=== PATIENT | male | born 1995 | race African-American/Black ===

== ENCOUNTER 2021-03-13 07:43 | Emergency (ER) | payer OTHER ==
[~2021-03-13] VITALS: Ht 188 cm; Wt 90.7 kg
--- NOTE | ~2021-03-13 | EMS ---
[facility] [address] [place] [address] EMS Patient Care Report Name: JABARI WARD Room #: REG RACQUEL Dolan#: [id number] Admission: 03/13/21 Attend Phys: Discharge: Date of : [birth year] Report #: [id number] THIS REPORT FOR: //name// Report Transmitted: 03/13/2021 07:40 EMS Care Summary [place], [place]/[facility] Incident [id number] @ 03/13/2021 06:42 Incident Location [address] [place] [address] Patient JABARI WARD Male, 25 Years 1995 Patient Address [address] [place] [address] Patient History Seizures, Patient Allergies No known allergies, Patient Medications Keppra, Chief Complaint sz Disposition Transported No Lights/[place] Reason Convulsions/Seizure Transported To [facility] Narrative pt found in bed post ictal. friend states she awoke when pt started to have a sz. she reports sz lasting approx 3 min. pt has a sz hx, unk if he is [facility] [address] [place] [address] EMS Patient Care Report Name: JABARI WARD Room #: REG RACQUEL Dolan#: [id number] Admission: 03/13/21 Attend Phys: Discharge: Date of : [birth year] Report #: [id number] compliant w/ meds. pt opens eyes to verbal, he is confused, c/o headache. pt out to cot, tx as listed in flow chart. pt has a large amount of blood tinged emesis prior to departure. he becomes more alert during transport but is still confused. transport to closest facility. report to staff on arrival rm 9. Initial Vitals @07:18P: 60,R: 18,BP: 100/60,Pain: 0/10,GCS: 13,Glucose: 143,SpO2: 97,Revised Trauma: 12, @07:39P: 70,R: 18,GCS: 14,SpO2: 96, Assessments @07:05MENTAL:Confused,SKIN:No Abnormalities,HEENT:Head/Face: Other,LUNG SOUNDS:General: Vomiting,ABDOMEN:General: Vomiting,PELVIS//GI:EXTREMITIES:PULSE:Radial: 2+ Normal,NEURO:Other,Seizures,@07:39MENTAL:Person Oriented,Confused,SKIN:No Abnormalities,HEENT:Head/Face: Other,LUNG SOUNDS:General: Vomiting,ABDOMEN:General: Vomiting,PELVIS//GI:EXTREMITIES:PULSE:NEURO:No Abnormalities, Impression Seizures Procedures @07:05 ALS Assessment Response: Unchanged @07:15 Stretcher Response: Unchanged @07:18 3-Lead ECG Response: Unchanged @07:20 IV Therapy - Saline Lock 10cc (20 ga) Site: Hand-Left Response: UnchangedSucceeded Timeline 06:41,Call Received 06:41,Dispatch Notified 06:42,Dispatched 06:43,En Route 06:59,On Scene 07:05,At Patient 07:05,ALS Assessment,Response: Unchanged 07:15,Stretcher,Response: Unchanged 07:18,BP: 100/60 M,PULSE: 60,RR: 18 R,SPO2: 97 Ox,ETCO2: ,B,PAIN: 0,GCS: 13, 07:18,3-Lead ECG,Response: Unchanged 07:20,IV Therapy - Saline Lock 10cc 20 ga Site: Hand-Left,Response: UnchangedSucceeded, 07:30,Depart Scene 07:39,At Destination [facility] [address] [place] [address] EMS Patient Care Report Name: JABARI WARD Room #: REG [facility]..#: [id number] Admission: 03/13/21 Attend Phys: Discharge: Date of : [birth year] Report #: [id number] 07:39,BP: / M,PULSE: 70,RR: 18 R,SPO2: 96 Ox,ETCO2: ,BG: ,PAIN: ,GCS: 14, 07:56,Call Closed Disclaimer v1.1 Copyright 2021 [employer] This EMS Care Summary contains data elements from the applicable legal record (which may be displayed differently). It is designed to provide pertinent information for the following purposes: continuity of care, clinical quality, and state data reporting. The complete legal record is available to ED staff and administrators of the receiving hospital in [employer] Patient Tracker. All data is provided "as is."
--- NOTE | ~2021-03-13 | EMS ---
[facility] [address] [place] [address] EMS Patient Care Report Name: JABARI WARD Room #: REG RACQUEL Dolan#: [id number] Admission: 03/13/21 Attend Phys: Discharge: Date of : [birth year] Report #: [id number] THIS REPORT FOR: //name// Report Transmitted: 03/13/2021 08:42 EMS Care Summary [place], [place]/[facility] Incident [id number] @ 03/13/2021 06:42 Incident Location [address] [place] [address] Patient JABARI WARD Male, 25 Years 1995 Patient Address [address] [place] [address] Patient History Seizures, Patient Allergies No known allergies, Patient Medications Keppra, Chief Complaint sz Disposition Transported No Lights/[place] Reason Convulsions/Seizure Transported To [facility] Narrative pt found in bed post ictal. friend states she awoke when pt started to have a sz. she reports sz lasting approx 3 min. pt has a sz hx, unk if he is [facility] [address] [place] [address] EMS Patient Care Report Name: JABARI WARD Room #: REG RACQUEL Dolan#: [id number] Admission: 03/13/21 Attend Phys: Discharge: Date of : [birth year] Report #: [id number] compliant w/ meds. pt opens eyes to verbal, he is confused, c/o headache. pt out to cot, tx as listed in flow chart. pt has a large amount of blood tinged emesis prior to departure. he becomes more alert during transport but is still confused. transport to closest facility. report to staff on arrival rm 9. Initial Vitals @07:18P: 60,R: 18,BP: 100/60,Pain: 0/10,GCS: 13,Glucose: 143,SpO2: 97,Revised Trauma: 12, @07:39P: 70,R: 18,GCS: 14,SpO2: 96, Assessments @07:05MENTAL:Confused,SKIN:No Abnormalities,HEENT:Head/Face: Other,LUNG SOUNDS:General: Vomiting,ABDOMEN:General: Vomiting,PELVIS//GI:EXTREMITIES:PULSE:Radial: 2+ Normal,NEURO:Other,Seizures,@07:39MENTAL:Person Oriented,Confused,SKIN:No Abnormalities,HEENT:Head/Face: Other,LUNG SOUNDS:General: Vomiting,ABDOMEN:General: Vomiting,PELVIS//GI:EXTREMITIES:PULSE:NEURO:No Abnormalities, Impression Seizures Procedures @07:05 ALS Assessment Response: Unchanged @07:15 Stretcher Response: Unchanged @07:18 3-Lead ECG Response: Unchanged @07:20 IV Therapy - Saline Lock 10cc (20 ga) Site: Hand-Left Response: UnchangedSucceeded Timeline 06:41,Call Received 06:41,Dispatch Notified 06:42,Dispatched 06:43,En Route 06:59,On Scene 07:05,At Patient 07:05,ALS Assessment,Response: Unchanged 07:15,Stretcher,Response: Unchanged 07:18,BP: 100/60 M,PULSE: 60,RR: 18 R,SPO2: 97 Ox,ETCO2: ,B,PAIN: 0,GCS: 13, 07:18,3-Lead ECG,Response: Unchanged 07:20,IV Therapy - Saline Lock 10cc 20 ga Site: Hand-Left,Response: UnchangedSucceeded, 07:30,Depart Scene 07:39,At Destination [facility] [address] [place] [address] EMS Patient Care Report Name: JABARI WARD Room #: REG [facility]..#: [id number] Admission: 03/13/21 Attend Phys: Discharge: Date of : [birth year] Report #: [id number] 07:39,BP: / M,PULSE: 70,RR: 18 R,SPO2: 96 Ox,ETCO2: ,BG: ,PAIN: ,GCS: 14, 07:56,Call Closed Disclaimer v1.1 Copyright 2021 [employer] This EMS Care Summary contains data elements from the applicable legal record (which may be displayed differently). It is designed to provide pertinent information for the following purposes: continuity of care, clinical quality, and state data reporting. The complete legal record is available to ED staff and administrators of the receiving hospital in [employer]'s Patient Tracker. All data is provided "as is."
[2021-03-13] MEDS ORDERED: DOXYCYCLINE 10100 MG PO (11:54)
[2021-03-13 12:09] VITALS: BP 122/72
== END 2021-03-13 12:04 | disposition home or self-care (01) ==
LOC: ER 07:43
DX: R56.9 Unspecified convulsions (principal); R51.9 Headache, unspecified; R36.9 Urethral discharge, unspecified

== ENCOUNTER 2021-03-23 08:20 | Emergency (ER) | payer OTHER ==
[~2021-03-23] VITALS: Ht 185.4 cm; Wt 86.2 kg
[~2021-03-23 08:20] MED LIST: DOXYCYCLINE 10100 MG PO
[2021-03-23 08:32] VITALS: BP 116/68
[2021-03-23 08:55] LABS: HEMATOCRIT 47.2 % (42.0-52.0); HEMOGLOBIN 15.5 gm/dL (14.0-18.0); MCH 34.1 pg (26.0-34.0); MCHC 32.8 g/dL (28.0-37.0); MCV 103.9 fL (80.0-100.0); PLATELET COUNT 210 thou/uL (150-400); RBC 4.54 mil/uL (4.50-6.00); RDW 13.8 % (10.5-14.5); WBC 3.4 thou/uL (4.0-11.0)
[2021-03-23 09:28] LABS: CREATININE 1.3 mg/dL (0.7-1.3); POTASSIUM 3.9 mmol/L (3.5-5.1)
[2021-03-23 09:34] LABS: ALBUMIN 4.3 g/dL (3.4-5.0); TOTAL BILIRUBIN 0.2 mg/dL (0.2-1.0)
[2021-03-23 11:26] LABS: ABSOLUTE NEUTROPHILS 1.8 thou/uL (1.4-8.2); ANISOCYTOSIS SLIGHT; ATYPICAL LYMPHS 6 %; MACROCYTES SLIGHT
== END 2021-03-23 09:55 | disposition home or self-care (01) ==
LOC: ER 08:20
PROVIDERS: Emergency Medicine
DX: U07.1 COVID-19 (principal); G40.909 Epilepsy, unspecified, not intractable, without status epilepticus; Z79.899 Other long term (current) drug therapy

== ENCOUNTER 2021-04-12 09:54 | Emergency (ER) | payer OTHER ==
[~2021-04-12] VITALS: Ht 185.4 cm; Wt 90.7 kg
[2021-04-12 09:56] VITALS: BP 104/62
[2021-04-12] MEDS ORDERED: KEPPRA 500 MG500 M1 PO (10:04)
[2021-04-12] MEDS ORDERED: ZONISAMIDE 100100 M1 PO (10:04)
[2021-04-12 10:20] LABS: HEMATOCRIT 43.6 % (42.0-52.0); HEMOGLOBIN 14.3 gm/dL (14.0-18.0); MCH 33.4 pg (26.0-34.0); MCHC 32.8 g/dL (28.0-37.0); MCV 101.9 fL (80.0-100.0); PLATELET COUNT 266 thou/uL (150-400); RBC 4.28 mil/uL (4.50-6.00); RDW 13.9 % (10.5-14.5); WBC 2.9 thou/uL (4.0-11.0)
[2021-04-12 10:29] LABS: CALCIUM 8.6 mg/dL (8.5-10.1); POTASSIUM 4.4 mmol/L (3.5-5.1)
[2021-04-12 10:36] LABS: TOTAL BILIRUBIN 0.2 mg/dL (0.2-1.0); TOTAL PROTEIN 7.1 g/dL (6.4-8.2)
[2021-04-12 10:58] LABS: ABSOLUTE NEUTROPHILS 1.2 thou/uL (1.4-8.2); PLATELET ESTIMATE NORMAL
== END 2021-04-12 11:33 | disposition home or self-care (01) ==
LOC: ER 09:54
PROVIDERS: Emergency Medicine
DX: R51.9 Headache, unspecified (principal); Z79.899 Other long term (current) drug therapy